=== PATIENT | female | born 1985 | race Caucasian/White ===

== ENCOUNTER 2019-06-11 15:34 | Outpatient (REF) | payer MEDICAID, SELFPAY ==
--- NOTE | 2019-06-11 14:40 | PAPFT_PTH ---
PATIENT: Lulu Lomas [id number] AGE/SX: 33/F ROOM: RE06/11/[address]: Lorelei Blanca : 1985 BED: DIS: 06/11/2019 SPEC #: [id number] RECD: 06/12/19 13:02 STATUS: YOUSIF REMoises #: [id number] PRICILA: 06/11/19 14:[address]: Lorelei Blanca DEPT: [facility] Cytology RECD BY: Faith Carrillo ENTERED: 06/12/19 13:02 SP TYPE: PAPFT OTHR DR: Margarito Goldstein Tissues: 1 - CX/ENDOCX FOR PAP SMEARS Procedures: PAP THIN PREP/UVM Screening HPV DNA PROBE Comments: [id number] (CHLAMYDIA/GC)
[2019-06-11 21:47] LABS: HCT 42.7 % (36.0-46.0); HGB 14.1 g/dL (12.0-15.5); Mean Corpuscular Hemoglobin 29.6 pg (27.0-33.0); Mean Corpuscular Volume 89.5 fL (80-95); Mean Platelet Volume 10.8 fL (8.0-11.0); Platelet Count 295 x1000/uL (130-400); RBC 4.77 m/cumm (4.00-5.20); RBC Distribution Width 13.3 % (11.7-14.6)
[2019-06-11 22:07] LABS: Iron 50 ug/dL (50-175); Total Iron Binding Capacity 350 ug/dL (250-450); Transferrin Sat 14 % (15-50)
[2019-06-11 22:17] LABS: BUN 13 mg/dL (7-18); CREATININE 0.62 mg/dL (0.55-1.02); Calcium 8.6 mg/dL (8.5-10.1); Chloride 106 mmol/L (98-107); Glucose 84 mg/dL (70-100); Potassium 4.4 mmol/L (3.5-5.1); Sodium 140 mmol/L (136-145); TSH (W/Ref FT4) 0.85 uIU/mL (0.358-3.74)
[2019-06-13 06:49] LABS: Vitamin D 25 Total 23.6 ng/ml (30-100)
[2019-06-13 14:32] LABS: Chlamydia Result Negative; GC Result Negative; Specimen Description SEE COMMENTS
== END 2019-06-11 15:54 ==
LOC: NCHCN 15:34
PROVIDERS: PCP Internal Medicine; Visit Provider Nurse Practitioner Family
DX: R53.83 Other fatigue (principal); Z11.3 Encounter for screening for infections with a predominantly sexual mode of transmission; Z12.4 Encounter for screening for malignant neoplasm of cervix; Z11.51 Encounter for screening for human papillomavirus (HPV); Z01.419 Encounter for gynecological examination (general) (routine) without abnormal findings
CPT/HCPCS: 80048; 82306; 85027; 87491; 87591; 88142; 83540; 83550; 84443; 87624

== ENCOUNTER 2020-02-03 17:42 | Emergency (ER) | payer MEDICAID, SELFPAY ==
[2020-02-03 17:48] VITALS: BP 127/73; PULSE 68; RESP 20; TEMP 36.6; O2SAT 100
--- NOTE | 2020-02-03 18:03 | W.ED.GENAD ---
Discharge Plan Disposition Patient Disposition: HOME Condition: Stable Discharge Details Chief Complaint: EyeProblem Clinical Impression: Hordeolum externum left upper eyelid Primary Care Provider: Margarito Goldstein ED Provider: Sarah Stout Home Meds and New Rx's Prescriptions: Continued Implanon RF: 0 Discharge Instructions Instructions: Darlin (ED) Additional Instructions: Continue warm compresses. Follow-up or return sooner if any discharge, crusty's your eye becomes red or any worsening. Follow up with primary care provider in 3-5 days. Return to ED sooner if any worsening or concerns. Increase oral fluids. [address] [address] Stand Alone Forms: Work Release Referrals: Sjeal Chiu [Emergency Nurse] - Discharge Data Discharge Date/Time-TO BE ENTERED AT DEPARTURE: 02/03/20 18:20 Medical Decision Making 34-year-old female presents with right upper eyelid swelling and tenderness. No discharge or crustiness. Patient has been applying warm compresses at home which has helped. No other complaints. Patient instructed to continue with moist warm compresses given follow-up information to [facility] if any worsening. Strict return instructions given. Differential diagnosis includes blepharitis, early conjunctivitis, chalazion. HPI General Mode of arrival: ambulatory. Date/Time Provider Initiated Documentation: 02/03/20 17:52. Limitations to Documentation: no limitations. Information obtained by: patient. HPI Narrative: 34-year-old female presents with right upper eyelid swelling and tenderness. No discharge or crustiness. Patient has been applying warm compresses at home which has helped. No other complaints. Related Data Home Medications Medication Instructions Recorded Confirmed Implanon 01/18/17 Allergies Allergy/AdvReac Type Severity Reaction Status Date / Time ciprofloxacin [From Cipro] Allergy Severe RASH/SOB Unverified 02/03/20 17:51 nitrofurantoin Allergy Intermediate Skin Rash Unverified 02/03/20 17:51 macrocrystalline [From Macrobid] sertraline HCl [From Zoloft] AdvReac Mild Nausea Unverified 02/03/20 17:51 General Stated Complaint: EyeProblem LORENA: 4 Review of Systems Narrative: Constitutional: Negative for weight loss, alert and oriented, well groomed, normal body habitus, appears comfortable. HEENT: Denies trauma, headaches, blurry vision, nasal discharge, sore throat, trouble swallowing. Positive left upper eyelid swelling and tenderness. Chest: Denies chest pain, palpitations, irregular rhythm, hypertension. Respiratory: Denies Shortness of breath, cough, hemoptysis. GI: Denies abdominal pain, nausea, vomiting, diarrhea, constipation. : Denies dysuria, hematuria, flank pain, rectal bleeding. Neuro: Denies dizziness, blurry vision, weakness, syncope, headache or facial numbness. Hematologic: Denies easy bruising, intolerance to heat or cold, hair loss. [facility], [facility] Social History Smoking/Tobacco Use Status: Current every day Alcohol Intake: never Drug use: Never Substance use type: does not use Do you feel safe at home: Yes Do you feel safe in your relationship?: Yes Exam Narrative Exam Narrative: Constitutional: Allert and oriented x3. Appears stated age. Normal body habitus. Head: Normocephalic, no trauma. Eyes: Pupils PERRLA, Red reflex noted, EOM's intact. Left upper eyelid erythemic, slight amount of swelling noted. ENT: Bilateral TM's WNL, External ear normal to inspection, no mastoid TTP, swelling, or erythema, Nasal turbinates WNL, no nasal discharge. Normal dentition, Posterior pharynx WNL, no exudate. Chest: RRR, Normal S1, S2, distal pulses intact. Resp: Lungs clear to auscultation bilaterally, no wheezes, rales, or rhonchi. Musculoskeletal: Normal gait, 5/5 strength to all four extremities. Skin: No suspicious rashes or lesions. Capillary refill ?2 sec. Neurologic: Cranial nerves II-XII intact. Alert and oriented x 3. DTR's intact. Hematologic/Lymphatic: No ecchymosis, no lymphadenopathy. Eyes Eyelids: eyelid abnormality left upper eyelid erythema, swelling and tenderness Conjunctivae: conjunctivae normal Sclera: sclerae normal Pupils: PERRL Course Vital Signs Vital signs: Vital Signs Temperature 36.6 C 02/03/20 17:48 Pulse 68 02/03/20 17:48 Respiratory Rate 20 02/03/20 17:48 Blood Pressure 127/73 03/09/20 17:48 Pulse Oximetry 100 02/03/20 17:48 Temperature 36.6 C 02/03/20 17:48 Temperature Source Skin 02/03/20 17:48 Pulse 68 02/03/20 17:48 Respiratory Rate 20 02/03/20 17:48 Respiratory Effort Non-Labored 02/03/20 17:52 Blood Pressure 127/73 02/03/20 17:48 Blood Pressure Position Sitting 02/03/20 17:48 Pulse Oximetry 100 02/03/20 17:48 Oxygen Delivery Method Room Air 02/03/20 17:48 Oxygen Flow Rate 0 02/03/20 17:48
== END 2020-02-03 18:20 | disposition home or self-care (01) ==
PROVIDERS: Emergency Provider Registered Nurse Emergency; PCP Internal Medicine
DX: H00.014 Hordeolum externum left upper eyelid (principal)
CPT/HCPCS: 99282

== ENCOUNTER 2020-07-03 13:52 | Outpatient (REF) | payer MEDICAID, SELFPAY | END 2020-07-03 14:12 | LOC: NCHCN 13:52 | PROVIDERS: PCP Internal Medicine; Visit Provider Internal Medicine | DX: R30.0 Dysuria (principal) | CPT/HCPCS: 87077; 87086; 87186 ==

== ENCOUNTER 2022-09-20 08:25 | Emergency (ER) | payer MEDICAID, SELFPAY ==
[2022-09-20 08:30] VITALS: BP 123/59; PULSE 88; RESP 20; TEMP 36.7; O2SAT 99
--- NOTE | 2022-09-20 08:47 | ED.GENADUL_ITS ---
Discharge Plan Disposition Patient Disposition: HOME Condition: Stable Discharge Details Clinical Impression: Otalgia of both ears, Pharyngitis, Rash Primary Care Provider: Margarito Goldstein ED Provider: Josh Martinez Home Meds and New Rx's Prescriptions: New hydrocortisone 2.5 % cream 1 applic topical BID PRNQty: 20 0RF Continued Implanon Discharge Instructions Instructions: Pharyngitis (ED), Acute Rash (ED), Earache (ED) Additional Instructions: Rapid strep is negative. Strep culture and COVID are pending. No clear signs of bacterial infection, no clear indication to initiate antibiotic therapy. Fglv-dpu-lqyfxwt medications as directed for symptomatic control such as Tylenol, Motrin, antihistamines and decongestants. Hydrocortisone cream for the rash as directed. Please watch for new or worsening symptoms and return to the ER for any concerns. Lastly, please contact your primary care provider to discuss your ER visit and need for outpatient reevaluation. Medical Decision Making 36-year-old female presents with what appears to be contact dermatitis across her chest, no signs of secondary infection, will provide hydrocortisone lotion. Also reports otalgia and sore throat that began last night, has not taken any medications. Clinically she appears well, nontoxic, no clinical signs of bacterial infection. Will obtain rapid strep as well as a PCR COVID. Rapid strep negative, culture pending. We discussed that her otalgia and pharyngitis has only been present for the past 12 hours or so and certainly may evolve into something is more concerning for a bacterial infection requiring antibiotics but is certainly not the situation at this time. We discussed aggressive iyaf-cdq-zjdogin medication treatment Standard discharge and return precautions were provided. Patient understands, is agreeable to this plan, and has no additional questions or concerns upon discharge. This documentation was generated using Provigentation system, please disregard any oddities of phrase or misspellings. Medical Records Medical records reviewed: Yes I reviewed the patient's medical records. Lab Data Lab results reviewed: Yes I reviewed the patient's lab results. Labs: 09/20/22 09:50 Pharynx Group A Streptococcus Culture - Pending HPI General Mode of arrival: ambulatory . Date/Time Provider Initiated Documentation: 09/20/22 08:40 . Limitations to Documentation: no limitations . Information obtained by: patient . HPI Narrative: This is a 36-year-old female who reports a rash to her bilateral upper breast that has been present for approximately 1 week, questions if it is secondary to a new perfume, developed bilateral ear pain and a sore throat overnight, concerned that the rash and the new symptoms may be related. She is a smoker. Denies recent sick contacts, fever, ear drainage, cough, difficulty speaking or breathing, abdominal pain, nausea, vomiting, rash elsewhere on her body. Patient states that she has tried ewlr-pfg-sykvuhv creams with no significant relief. She has not taken any ckxk-xhd-ozmnljs medication for her ear pain and /or sore throat Related Data Home Medications Medication Instructions Recorded Confirmed Implanon 01/18/17 hydrocortisone 2.5 % topical cream 1 applic topical BID PRN #20 grams 09/20/22 Previous Rx's Medication Instructions Recorded hydrocortisone 2.5 % topical cream 1 applic topical BID PRN #20 grams 09/20/22 Allergies Allergy/AdvReac Type Severity Reaction Status Date / Time ciprofloxacin [From Cipro] Allergy Severe RASH/SOB Unverified 02/03/20 17:51 nitrofurantoin Allergy Intermediate Skin Rash Unverified 02/03/20 17:51 macrocrystalline [From Macrobid] sertraline HCl [From Zoloft] AdvReac Mild Nausea Unverified 02/03/20 17:51 General Stated Complaint: EarProblem LORENA: 4 Review of Systems Constitutional Constitutional: Denies fever(s) and Denies headache(s) Eyes Eyes: Denies eye discharge ENT Ears, Nose, Mouth, and Throat: Denies ear discharge, Reports otalgia, Denies headache(s), Denies nasal discharge, Denies neck pain and Reports sore throat Cardiovascular Cardiovascular: Denies chest pain and Denies dyspnea Respiratory Respiratory: Denies cough and Denies dyspnea Gastrointestinal Gastrointestinal: Denies abdominal pain, Denies nausea and Denies vomiting Musculoskeletal Musculoskeletal: Denies neck pain Integumentary/Breasts Skin/Breast: Reports rash Neurologic Neurologic: Denies headache(s) PFSH All Active Problems Otalgia of both ears (Acute) Pharyngitis (Acute) Rash (Acute) Social History Smoking/Tobacco Use Status: Current every day Smoking risk assessment performed?: Yes Alcohol Intake: never Drug use: Never Substance use type: does not use Do you feel safe at home: Yes Do you feel safe in your relationship?: Yes Exam Const General: cooperative, healthy appearing, comfortable and no acute distress Orientation: alert and awake [facility] Head: normal to inspection, normocephalic and atraumatic Ears: external ears normal, TM's normal bilaterally and EAC's normal General nose exam: external nose normal Face and sinus: normal facial exam Mouth: oral mucosae normal and moist mucous membranes Teeth and gingiva: dentition normal Throat: posterior oropharynx normal Eyes General: appearance normal, both eyes and all related structures Conjunctivae: conjunctivae normal Neck Neck: normal visual inspection, full ROM, no lymphadenopathy, no meningeal signs, trachea midline, supple and nontender Chest Chest/axillae images: 1. Patchy macular papular erythema, minimal crusting but no intact blisters. Areas of excoriation. Without warmth or tenderness. No lymphangitic streaking. No obvious abscess. Blanchable, well-circumscribed borders Resp Effort & Inspection: normal respiratory effort and able to speak in complete sentences Auscultation: clear to auscultation bilaterally Cardio Rate: regular rate Rhythm: regular rhythm Skin General skin exam: erythema Neuro General: patient alert, patient awake, moves all extremities and no focal motor deficits Cognition: normal cognition Speech: speech normal Gait: normal gait Sensory Exam: no sensory deficits noted Psych Appearance: grossly normal Mental Status: mental status grossly normal Course Vital Signs Vital signs: Vital Signs Temperature 36.7 C 09/20/22 08:30 Pulse 88 09/20/22 08:30 Respiratory Rate 20 09/20/22 08:30 Blood Pressure 123/59 L 09/20/22 08:30 Pulse Oximetry 99 09/20/22 08:30 Temperature 36.7 C 09/20/22 08:30 Temperature Source Temporal Artery Scan 09/20/22 08:30 Pulse 88 09/20/22 08:30 Respiratory Rate 20 09/20/22 08:30 Respiratory Effort Non-Labored 09/20/22 08:33 Blood Pressure 123/59 L 09/20/22 08:30 Blood Pressure Position Sitting 09/20/22 08:30 Pulse Oximetry 99 09/20/22 08:30 Oxygen Delivery Method Room Air 09/20/22 08:30 Oxygen Flow Rate 0 09/20/22 08:30 Pain Level 5 09/20/22 08:30
[2022-09-22 11:24] LABS: COVID-19 RT-PCR UVMMC Result Negative (Negative)
== END 2022-09-20 09:37 | disposition home or self-care (01) ==
PROVIDERS: Emergency Provider Physician Assistant; PCP Internal Medicine
DX: R21 Rash and other nonspecific skin eruption (principal); H92.03 Otalgia, bilateral; J02.9 Acute pharyngitis, unspecified; Z20.822 Contact with and (suspected) exposure to COVID-19
CPT/HCPCS: 87880; 99282; U0003; 87081

== ENCOUNTER 2023-01-17 17:48 | Outpatient (REF) | payer MEDICAID, SELFPAY ==
[2023-01-17 20:50] LABS: Abs Immature Grans 0.03 10^3/uL (0.0-0.06); Absolute Basophil Count 0.07 10^3/uL (0.0-0.2); Absolute Eosinophil Count 0.26 10^3/uL (0.0-0.7); Absolute Lymphocyte Count 2.59 10^3/uL (1.2-3.4); Absolute Monocyte Count 0.82 10^3/uL (0.1-0.8); Absolute Neutrophil Count 8.46 10^3/uL (1.2-6.7); Basophils % 0.6; Eosinophils % 2.1; HCT 43.8 % (36.0-46.0); Immature Grans % 0.2; Lymphocytes % 21.2; MCH 29.4 pg (27.0-33.0); MCV 92 fL (80-95); MPV 10.8 fL (8.0-11.0); Monocytes % 6.7; Neutrophils % 69.2; Platelet Count 303 10^3/uL (130-400); RBC 4.77 10^6/uL (3.93-5.22); RDW 13.2 % (11.7-14.6); RDW-SD 44.9 fL; WBC 12.23 10^3/uL (4.4-10.8)
[2023-01-17 21:08] LABS: ALT 15 U/L (14-59); AST 14 U/L (15-37); Albumin 4.2 g/dL (3.4-5.0); Alkaline Phosphatase 58 U/L (46-116); Anion Gap 7.4 mmol/L (3-11); BUN 13 mg/dL (7-18); Bilirubin, Total 0.3 mg/dL (0.2-1.0); CO2 27.6 mmol/L (21.0-32.0); CREATININE 0.7 mg/dL (0.55-1.02); Calcium 9.4 mg/dL (8.5-10.1); Chloride 105 mmol/L (98-107); Estimated GFR 112.75 (mL/min/1.73m2); Glucose 92 mg/dL (74-106); Sodium 140 mmol/L (136-145); TSH 0.84 uIU/mL (0.36-3.74); Total Protein 7.1 g/dL (6.4-8.2)
[2023-01-17 21:22] LABS: Vitamin D 25 Total 25.7 ng/mL (30-100)
== END 2023-01-17 17:49 | disposition home or self-care (01) ==
LOC: NCHCN 17:48
PROVIDERS: PCP Internal Medicine; Visit Provider Internal Medicine
DX: R63.4 Abnormal weight loss (principal); F50.9 Eating disorder, unspecified; F41.9 Anxiety disorder, unspecified
CPT/HCPCS: 80053; 82306; 84443; 85025